=== PATIENT | female | born 1970 | race Caucasian/White ===

== ENCOUNTER → 2024-01-08 12:10 | Outpatient (REF) | payer OTHER, SELFPAY | LOC: WDC 12:10 | PROVIDERS: ATTENDING PHYSICIAN Nurse Practitioner Women's Health; FAMILY PHYSICIAN Physician Assistant | DX: Z12.31 Encounter for screening mammogram for malignant neoplasm of breast (principal) | CPT/HCPCS: 77063; 77067 ==

== ENCOUNTER → 2024-04-26 12:43 | Outpatient (REF) | payer OTHER, SELFPAY | LOC: WDC 12:43 | PROVIDERS: ATTENDING PHYSICIAN Nurse Practitioner Women's Health; FAMILY PHYSICIAN Physician Assistant | DX: R92.2 Inconclusive mammogram (principal) | CPT/HCPCS: 76641 ==

== ENCOUNTER → 2024-10-14 16:11 | Outpatient (REF) | payer OTHER, SELFPAY | LOC: RAD 16:11 | PROVIDERS: ATTENDING PHYSICIAN Podiatrist Foot & Ankle Surgery; FAMILY PHYSICIAN Physician Assistant | DX: M84.375A Stress fracture, left foot, initial encounter for fracture (principal) | CPT/HCPCS: 73700 ==

== ENCOUNTER 2024-12-11 10:15 | Emergency (ER) | payer OTHER, SELFPAY ==
[2024-12-11 11:02] LABS: % Basophils 0.3 % (0-2); % Immature Granulocytes 0.5 % (0-0.5); % Lymphocytes 15.1 % (20.5-51.1); % Monocytes 5.9 % (1.7-9.3); % Neutrophils 78.2 % (42.2-75.2); Absolute Lymphocytes 1.2 10^3/uL (1.2-3.4); Absolute Monocytes 0.5 10^3/uL (0.1-0.6); Absolute Neutrophils 6.1 10^3/uL (1.4-6.5); Hematocrit 36.9 % (37.0-47.0); Hemoglobin 12.9 g/dL (12.0-16.0); Mean Corpuscular Hgb 31.9 pg (27.0-31.0); Mean Corpuscular Volume 91.1 fL (81.0-99.0); Mean Platelet Volume 9.1 fL (7.4-10.4); Nucleated Red Blood Cells % 0 %; Platelet Count 371 10^3/uL (130-400); Red Blood Cell Count 4.05 10^6/uL (4.20-5.40); Red Cell Dist. Width 12.1 % (11.5-14.5); White Blood Cell Count 7.8 10^3/uL (4.8-10.8)
[2024-12-11 11:16] LABS: Blood Urea Nitrogen 15 mg/dl (7-17); Calcium 9.9 mg/dl (8.4-10.2); Carbon Dioxide 28 mmol/L (22-30); Chloride 99 mmol/L (98-107); Glucose 166 mg/dl (70-99); Potassium 3.7 mmol/L (3.5-5.1); Sodium 139 mmol/L (135-145); eGFR > 60.00
[2024-12-11 11:17] LABS: Amphetamines Negative (Negative); Barbiturates Negative (Negative); Benzodiazepines Negative (Negative); Buprenorphine Negative (Negative); Cocaine Negative (Negative); Methadone Negative (Negative); Methamphetamines Negative (Negative)
[2024-12-11 11:18] LABS: Marijuana Negative (Negative); Opiates Negative (Negative); Phencyclidine Negative (Negative); Tricyclic Antidepressants Negative (Negative)
== END 2024-12-11 13:59 | disposition other institution (70) ==
LOC: EMR 10:15
PROVIDERS: EMERGENCY PHYSICIAN Emergency Medicine; FAMILY PHYSICIAN Physician Assistant
DX: F41.9 Anxiety disorder, unspecified (principal); Z53.21 Procedure and treatment not carried out due to patient leaving prior to being seen by health care provider
CPT/HCPCS: 99281; 80048; 80306; 82077; 85025

== ENCOUNTER 2025-01-14 16:23 | Emergency (ER) | payer OTHER, SELFPAY ==
[2025-01-14 16:31] VITALS: BP 128/90
--- NOTE | 2025-01-14 17:22 | ED.GENMED ---
History of Present Illness
General
Chief Complaint: Psychiatric Problem
Source: patient
Exam Limitations: none
Time Seen by Provider: 01/14/25 16:45
Nursing documentation reviewed up to this point in time: agreed with
History of Present Illness
History of Present Illness:
Patient is a 54-year-old female who presents to the ER for evaluation. Patient has a history anxiety depression and recently weaned herself off BuSpar because it was giving her 'funny side effects.' She felt she was going to' jump out of her skin
and had a lot of postnasal drip.' She has been in contact with a family doctor and is recently been doing outpatient therapy at [facility] however went there today and is feeling' hopeless.'
She reports that she has' racing thoughts.' she has no plan of suicide. Does not feel suicidal now.
Sister is at bedside.
She has an appoint with a psychiatrist this would be her first appointment however this is not scheduled to the end of January. She lives at home with her 8 yr old child.
Past History
Past History
ED Past Medical History: HTN and Other (Kidney stones, iron deficiency anemia.)
Social History
Tobacco: Non-smoker
Alcohol: None
Drug: None
Personal: Single
Living: with family
Employment: Employed
Family History
Family History: Other (Noncontributory)
Review of Systems
Review of Systems
Allergies reviewed?: Yes
All Other Systems: ROS reviewed and negative except as documented in HPI and ROS
Constitutional: Reports no symptoms
Respiratory: Reports no symptoms
Cardiac: Reports no symptoms
ABD/GI: Reports no symptoms
Musculoskeletal: Reports no symptoms
Skin: Reports no symptoms
Neurological: Reports no symptoms
Psychiatric: Reports depression, anxiety and other (pt denies feeling suicidal now ); Denies hallucinations
Phy Exam
General Physical Exam
General Presentation: no apparent distress
General age: appears stated age
General Skin: warm and dry
General Habitus: normal
General Mental: alert
General Hydration: appears well hydrated
Neurological Exam
Neurological Exam: alert and oriented x3
Musculoskeletal Exam
Musculoskeletal Exam: full ROM
Skin Exam
Skin Exam: normal color and warm/dry
Psychiatric Exam
Psychiatric Exam: normal mood/affect
Course
Orders/Labs/Results
Orders:
Orders
01/14/25 17:23
Crisis Consult Urgent
Reason for Consult: suicidal
Vital Signs
Initial and Last Documented VS:
Initial Vital Signs
Temp Pulse Resp BP Pulse Ox
98.8 F 85 16 128/90 98
01/14/25 16:31 01/14/25 16:31 01/14/25 16:31 01/14/25 16:31 01/14/25 16:31
Last Documented Vital Signs
Temp Pulse Resp BP Pulse Ox
98.8 F 85 16 128/90 98
01/14/25 16:31 01/14/25 16:31 01/14/25 16:31 01/14/25 16:31 01/14/25 16:31
MDM/Problems Addressed
Differential Diagnosis Includes:
Not limited to anxiety depression
MDM/Problems Addressed:
Patient is a 54-year-old female who presents with anxiety and depression. She feels very helpless. She has tried Lexapro but had side effects from that and in addition recently decreased herself off BuSpar as well and stopped taking it because of
side effects. She does have an outpatient psychiatrist appointment at the end of the month but continues to feel very anxious hopeless. She however has had no suicidal plan. She wants to ' feel better.'
Patient was evaluated by crisis and patient at this time does not want inpatient placement she was given information on [facility] and feels that this may be a good option for her until she is seen by psychiatry at the
end of the month. I did review with patient however to also speak with a family doctor and be evaluated. She feels safe enough to go home. She is to return if worsening of symptoms
*Pulse Oximetry
Patient hypoxic: no
*Critical Care Note
Total Time (30-74mins, 75-104mins- exclusive of procedures): Not Applicable
ED Attending Note
-
Portions of this chart may have been created with voice recognition software.� Occasional wrong word or��sound alike� substitutions may have occurred due to the inherent limitations of voice recognition software.
Discharge Plan
Departure
Patient Disposition: Home (Routine Discharge)
Date of Disposition: 01/14/25
Time of Disposition: 18:50
Patient with high blood pressure during this ER visit?: Yes
Condition: Fair
Covid-19: Not Applicable
Discharge Problem:
Depression
Instructions: Depression, Adult (DC), BLOOD PRESSURE
Prescriptions:
No Action
amlodipine 2.5 MG tablet
2.5 mg PO DAILY
ferrous sulfate [Iron (ferrous sulfate)] 325 MG tablet
325 mg PO DAILY
Referrals:
Sarah Puga PA-C [Family Provider] -
Activity Restrictions/Additional Instructions:
Please follow-up with outpatient [facility] as discussed with Ariel sanderson.
Please return to the ER if any worsening of symptoms
Interventions
Interventions:
*Risk Screen - Suicide Last Done: 01/14/25 16:34
*General Assessment Last Done: 01/14/25 16:31
*Neglect/Abuse Screening Last Done: 01/14/25 18:49
*ED- Fall Risk Assessment Last Done: 01/14/25 18:50
*ED COVID-19 Vaccine History Last Done: 01/14/25 16:31
ED-Psychological Assessment Last Done: 01/14/25 18:49
Discharge Date and Time
Print Language: HEBREW
[2025-01-14 18:49] VITALS: BMI 21.8
== END 2025-01-14 19:02 | disposition home or self-care (01) ==
LOC: EMR 16:23
PROVIDERS: EMERGENCY PHYSICIAN Emergency Medicine; FAMILY PHYSICIAN Physician Assistant
DX: F32.A Depression, unspecified (principal); F41.9 Anxiety disorder, unspecified; I10 Essential (primary) hypertension
CPT/HCPCS: 99283

== ENCOUNTER → 2025-02-23 13:10 | Outpatient (REF) | payer OTHER, SELFPAY | LOC: WDC 13:10 | PROVIDERS: ATTENDING PHYSICIAN Obstetrics & Gynecology; FAMILY PHYSICIAN Physician Assistant | DX: Z13.820 Encounter for screening for osteoporosis (principal); Z12.31 Encounter for screening mammogram for malignant neoplasm of breast | CPT/HCPCS: 77063; 77067; 77080 ==